=== PATIENT | male | born 1995 | race Two or more races ===

== ENCOUNTER 2019-02-19 23:26 | Emergency (ER) | payer OTHER ==
[~2019-02-19] VITALS: Ht 180.3 cm; Wt 104.3 kg
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
[2019-02-20] MEDS ORDERED: Albuterol/Ipratropium 3ml neb HHN ONE
[2019-02-20 00:01] VITALS: BP 138/78
[2019-02-20] MEDS ORDERED: Ketorolac 60mg Inj IM ONE (00:15)
--- NOTE | 2019-02-20 01:00 | NUR ---
ED Nurse Note: Pt went to CT scan.
[2019-02-20] MEDS ORDERED: ROBAXIN-750750 MG PO (02:03)
[2019-02-20] MEDS ORDERED: IBUPROFEN600 MG ORAL (02:03)
[2019-02-20 02:16] VITALS: BP 130/74
[2019-02-20 02:17] VITALS: BP 130/74
--- NOTE | 2019-02-20 02:17 | NUR ---
ER DISCHARGE NOTE: Patient is cleared to be discharged per ERMD, pt is aox4, on room air, with stable vital signs. pt was given dc and prescription instructions, pt was able to verbalize understanding, pt id band removed without complications. pt is able to ambulate with steady gait. pt took all belongings.
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
== END 2019-02-20 02:19 | disposition home or self-care (01) ==
LOC: EMR 23:50
DX: S13.4XXA Sprain of ligaments of cervical spine, initial encounter (principal); R51 Headache; V43.52XA Car driver injured in collision with other type car in traffic accident, initial encounter; Y92.410 Unspecified street and highway as the place of occurrence of the external cause; Z88.0 Allergy status to penicillin
CPT/HCPCS: 72125; 94640; 94664; 96372; 99284; J7620